=== PATIENT | female | born 1955 | race Caucasian/White ===

== ENCOUNTER 2017-10-10 19:41 | Inpatient (IN) ==
[2017-10-10] MEDS ORDERED: Famotidine 20 MG TABLET PO PRN (20:08)
[2017-10-10] MEDS ORDERED: Nitroglycerin 0.4 MG TAB.SUBL SL PRN (20:08)
[2017-10-10] MEDS: rOPINIRole 1 MG TABLET PO SCH (20:49)
[2017-10-10] MEDS: CarBAMazepine XR (12 hr) 100 MG TAB PO SCH (20:50)
[2017-10-10] MEDS: Beclomethasone 40mcg MDI IH SCH (20:54)
[2017-10-10] MEDS ORDERED: FLUTICASONE PROPIONATE IH SCH (21:00)
[2017-10-10] MEDS: clonazePAM 0.5 MG TABLET PO SCH (21:20)
[2017-10-11 06:51] LABS: Basophils % 0.4 %; Eosinophils # 0.3 K/mcL (0.0-0.6); Eosinophils % 2.7 %; Hematocrit 34.6 % (35.3-44.9); Hemoglobin 11.2 g/dL (11.5-15.4); Immature Granulocytes % 0.3 % (0-4); Lymphocytes # 2.1 K/mcL (0.6-4.6); Lymphocytes % 22.9 %; Mean Corpuscular HGB Conc 32.4 g/dL (31.6-35.5); Mean Corpuscular Hemoglobin 31.6 pg (28.0-33.3); Mean Corpuscular Volume 97.7 fL (83.0-100.0); Mean Platelet Volume 10.2 fL (9.4-12.4); Monocytes # 0.8 K/mcL (0.0-1.3); Monocytes % 8.3 %; Platelet Count 294 K/mcL (140-400); Red Blood Count 3.54 M/mcL (3.82-4.97); Red Cell Distribution Width 13.4 % (11.5-14.5); Segmented Neutrophils % 65.4 %
[2017-10-11 06:52] LABS: BUN/Creatinine Ratio 15 (6-26); Blood Urea Nitrogen 9 mg/dL (7-20); Calcium 9.7 mg/dL (8.6-10.8); Carbon Dioxide 24 mEq/L (19-29); Chloride 101 mEq/L (98-109); Glucose 111 mg/dL (70-99); Osmolality,Calculated 281 (280-300); Potassium 4.5 mEq/L (3.5-4.5); Prothrombin Time 10.2 Seconds (9.4-12.1); Sodium 136 mEq/L (136-145); eGFR For African Americans > 60 (> 60); eGFR For Non-African Americans > 60 (> 60)
[2017-10-11] MEDS: CarBAMazepine XR (12 hr) 100 MG TAB PO SCH ×2 (08:41→22:10)
[2017-10-11] MEDS: Metoprolol XL (24 HR) Succ 25 MG TAB.ER.24H PO SCH (08:41)
[2017-10-11] MEDS: clonazePAM 0.5 MG TABLET PO SCH ×2 (08:41→22:09)
[2017-10-11] MEDS: Multivit/Ca/Min/Fe/FA 1 TAB TABLET PO SCH (08:41)
[2017-10-11] MEDS: Aspirin 81 MG TAB.CHEW PO SCH (08:41)
[2017-10-11] MEDS: Cholecalciferol (D-3) 1,000 UNIT TABLET PO SCH (08:42)
[2017-10-11] MEDS: Beclomethasone 40mcg MDI IH SCH ×2 (09:48→22:10)
[2017-10-11] MEDS: Amoxicillin/Clavulanate 500 MG TABLET PO SCH ×2 (09:48→17:49)
--- NOTE | 2017-10-11 14:15 | Internal Med History&Physical ---
Date of Encounter: 10/11/17 Time of Encounter: 14:13 Assessment and Plan (1) Enterococcus UTI Current visit: No Status: Acute No acute issues. Febrile. Patient continues on current antibiotics. Will continue with therapy. (2) Delirium Current visit: No Status: Acute Patient is oriented and appropriate with conversation. Noted to have hesitation and word searching during conversation. No other focal deficits noted during exam. We will continue with current plan of care (3) HTN (hypertension) Current visit: No Status: Chronic Vital signs stable. We will continue with current medications. Qualifiers: Hypertension type: essential hypertension Qualified Code(s): I10 - Essential (primary) hypertension (4) Cervical stenosis of spinal canal Current visit: No Status: Acute No focal deficits noted on neurological exam. Muscle strength is 5/5 to all extremities, both flexion and extension. Patient with history of frequent falls. We will continue with physical therapy. Internal Medicine - H&P: HPI Chief complaint: UTI Admitted From: Home History of present illness: Ms. Coulter is a 62 year old female admitted to this facility for physical therapy and rehabilitation due to deconditioning after treatment for a UTI. Patient was admitted to previous facility for delirium and found to have a ESBL UTI. Patient currently denies any discomforts or shortness of breath. Stated noted to have hesitation during answering questions and appears to have word searching, but is appropriate with answers and follows commands well. Patient denies any fever or chills Past Med Surg Social Fam HX - Past Medical History Medical history: arthritis, asthma, coronary artery disease, GERD, hyperlipidemia, hypertension, seizures, syncope, other (Cervical stenosis) Psychiatric history: no psych history - Past Surgical History Surgical History: cholecystectomy, hip replacement, knee replacement - Social History Smoking Status: Never smoker Smokeless Tobacco Status: No Alcohol use: none Drug use: none - Family History Father History Unknown: Yes Mother History Unknown: Yes Family Member Ethnicity: Non- Living Status: Still Living Hx Family Cardiac Disorders: Yes Hx Family Respiratory Disorders: Yes Hx Family Cancer: Yes Hx Family GI Disorders: Yes Hx Family Endocrine Disorder: No Hx Family Neuromuscular Disorders: No Hx Family Neurologic Disorders: No Hx Family HEENT Disorders: No Hx Family Autoimmune Disorders: No Internal Medicine - H&P: Meds Acetaminophen [Tylenol] 500 mg PO Q6H PRN 05/19/16 [History] Albuterol Sulfate [Albuterol Inhaler] 2 puff IH Q4H PRN 05/19/16 [History] Aspirin 81 mg PO DAILY 05/19/16 [History] Cholecalciferol (D-3) [Vitamin D] 2,000 unit PO DAILY 05/19/16 [History] Fluticasone Propionate [Flovent Diskus] 2 puff IH BID 05/19/16 [History] Metoprolol XL (24 HR) Succ [Toprol Xl] 25 mg PO DAILY 05/19/16 [History] Multivitamin [Multivitamins] 1 each PO DAILY 05/19/16 [History] Oxybutynin [Ditropan] 5 mg PO HS 05/19/16 [History] Propafenone [Rhythmol] 150 mg PO BID 05/19/16 [History] Ramipril 2.5 mg PO DAILY 05/19/16 [History] Ranitidine HCl [Heartburn Relief] 150 mg PO DAILY PRN 05/19/16 [History] Ropinirole HCl [Requip] 2 mg PO HS 05/19/16 [History] clonazePAM [Klonopin] 0.5 mg PO BID 05/19/16 [History] Beclomethasone Diprop 40mcg [QVAR 40 mcg] 2 puff IH BID 10/05/17 [History] Meclizine HCl [Verticalm] 25 mg PO TID PRN 10/05/17 [History] Nitroglycerin [Nitrostat] 0.4 mg SL Q5M PRN 10/05/17 [History] carBAMazepine [Tegretol Xr] 400 mg PO HS 10/05/17 [History] carBAMazepine [Tegretol Xr] 600 mg PO QAM 10/05/17 [History] Amoxicillin/Clavulanate [Augmentin] 500 mg PO BIDWM 6 Days #12 tablet 10/10/17 [ Rx] 3 Allergy/AdvReac Type Severity Reaction Status Date / Time caffeine AdvReac Palpitation Verified 05/20/16 07:29 s All Systems PM: A 10-system review of systems was performed and is negative for pertinent findings except as documented above in the HPI. - Constitutional Constitutional: as per HPI - EENT Eyes: as per HPI Ears: no ear discharge, no ear pain, no tinnitus Nose, mouth and throat: no dysphagia, no nasal discharge, no neck pain, no sore throat - Cardiovascular Cardiovascular ROS IM: no chest pain, no diaphoresis, no dyspnea, no lightheadedness, no palpitations, no syncope - Respiratory Respiratory: no cough, no dyspnea, no wheezing, no excessive phlegm production - Gastrointestinal Gastrointestinal: no abdominal pain, no diarrhea, no hematemesis, no hematochezia, no melena, no nausea, no vomiting - Genitourinary Genitourinary: no change in urinary stream, no dysuria, no flank pain, no hematuria - Musculoskeletal Musculoskeletal ROS IM: no numbness, no tingling - Integumentary Integumentary IM: no rash, no unusual bruising - Neurological Neurological ROS: confusion, no convulsions, no focal weakness, no numbness, no tingling, no tremor(s) - Psychiatric Psychiatric: as per HPI - Hematologic/Lymphatic Hematologic/Lymphatic: no easy bruising - Allergic/Immunologic Allergic/Immunologic: as per HPI - Constitutional Vitals: Temp Pulse Resp BP Pulse Ox 97.9 F 78 18 123/80 97 10/11/17 11:38 10/11/17 11:38 10/11/17 11:38 10/11/17 11:38 10/11/17 11:38 General appearance: Present: A&O X 3, pleasant - Head Head exam: Present: atraumatic, normocephalic - Eye Eye exam: Present: PERRL, conjuntiva pink, sclera anicteric Pupils: Present: PERRL - Neck Neck exam general surgery: Present: supple, trachea midline. Absent: lymphadenopathy - Respiratory Respiratory exam: Absent: accessory muscle use, rales, rhonchi, wheezes Additional comments: Lungs are clear to illness and fine bibasilar rales heard. Respiratory effort is relaxed - Cardiovascular Cardiovascular exam: Present: RRR, +S1, +S2. Absent: diastolic murmur, gallop, rubs, systolic murmur - GI/Abdominal GI/Abdominal exam: Present: normal bowel sounds, soft, no peritoneal signs. Absent: distended, tenderness - Extremities Exam Extremities exam: Present: warm, radial pulses palpable and symmetrical. Absent : calf tenderness, cyanotic, pedal edema - Neurological Exam Neurological exam: Present: alert, CN II-XII intact, oriented X3, no focal deficits. Absent: pronater drift, facial droop, speech deficit Additional comments: Patient is oriented and appropriate with conversation but noted several seconds of hesitation when answering questions. Patient also noted to have slight generalized tremors. No other focal neurological deficits noted - Skin Skin exam: Present: dry, intact Internal Med - H&P Results - Labs CBC & Chem 7: 10/11/17 06:19 10/11/17 06:19 Labs: Short CBC 10/11/17 Range/Units 06:19 WBC 9.3 (4.3-11.1) K/mcL Hgb 11.2 L (11.5-15.4) g/dL Hct 34.6 L (35.3-44.9) % Plt Count 294 (140-400) K/mcL Neutrophils # 6.0 (1.6-8.9) K/mcL BMP 10/11/17 06:19 Sodium 136 Potassium 4.5 Chloride 101 Carbon Dioxide 24 BUN 9 Creatinine 0.61 Glucose 111 H Calcium 9.7 - VTE Documentation of Mechanical Device: Graduated compression elastic hosiery
[2017-10-11] MEDS: rOPINIRole 1 MG TABLET PO SCH (22:09)
[2017-10-12] MEDS: clonazePAM 0.5 MG TABLET PO SCH ×2 (08:28→21:25)
[2017-10-12] MEDS: Cholecalciferol (D-3) 1,000 UNIT TABLET PO SCH (08:28)
[2017-10-12] MEDS: Amoxicillin/Clavulanate 500 MG TABLET PO SCH ×2 (08:28→18:51)
[2017-10-12] MEDS: CarBAMazepine XR (12 hr) 100 MG TAB PO SCH ×2 (08:28→21:25)
[2017-10-12] MEDS: Aspirin 81 MG TAB.CHEW PO SCH (08:28)
[2017-10-12] MEDS: Metoprolol XL (24 HR) Succ 25 MG TAB.ER.24H PO SCH (08:28)
[2017-10-12] MEDS: Multivit/Ca/Min/Fe/FA 1 TAB TABLET PO SCH (08:28)
[2017-10-12] MEDS: Beclomethasone 40mcg MDI IH SCH ×2 (10:38→21:25)
--- NOTE | 2017-10-12 11:22 | Internal Med Progress Note ---
Date of Encounter: 10/12/17 Time of Encounter: 11:20 - Assessment and plan (1) Enterococcus UTI Current Visit: No Status: Acute Assessment and plan: Patient continues with complaints of frequency. Will continue on current antibiotics. Afebrile. We will continue with current plan of care. Per medical records patient has had several UTIs over the last 6 months. Would recommend patient follow-up with urology for further diagnostic workup. (2) Delirium Current Visit: No Status: Acute Assessment and plan: Patient reports patient became very confused throughout the night but again this morning she presents as oriented and appropriate. Spoke at length with who denies any episodes of confusion while at home, but did not express concerns about patient's declining health over the last 6 months. Per medical records patient has had recent diagnostic workup to neurology and ENT. Patient currently shows no focal neurological deficits. We will continue to monitor and reevaluate patient as she is infection free. (3) HTN (hypertension) Current Visit: No Status: Chronic Assessment and plan: Vital signs stable. We will continue his current medications. Qualifiers: Hypertension type: essential hypertension Qualified Code(s): I10 - Essential (primary) hypertension (4) Cervical stenosis of spinal canal Current Visit: No Status: Acute Assessment and plan: Patient noted to have generalized weakness and a history of frequent falls. Patient had neurological workup per neurology which showed moderate cervical stenosis. Patient shows no focal neurological deficits. Denies any decreased sensory or paresthesia. We will continue with physical therapy. We will continue to monitor closely. - Subjective Interval history: Patient appears relaxed and currently denies any discomforts. Patient does state that she does continue to have moderate generalized weakness. Patient noted to continue to have slight amount of word searching during questioning. Nurse reports patient became very confused Route tonight but this morning appears very appropriate and oriented. Spoke with her at length this morning on telephone and he expressed concerns about patient's recent decline in health over the past 6 months. Patient relates most of her symptoms began after a trip outside of the country. Patient's medical records were reviewed that shows that she has had recent diagnostic workup from ENT and neurology. denies any episodes of confusion at home. - Constitutional Vitals: Temp Pulse Resp BP Pulse Ox 98.9 F 62 16 110/56 97 10/12/17 07:32 10/12/17 07:32 10/12/17 07:32 10/12/17 07:32 10/12/17 07:32 General appearance: Present: A&O X 3, pleasant - Head Head exam: Present: atraumatic, normocephalic - Eye Eye exam: Present: PERRL, conjuntiva pink, sclera anicteric Pupils: Present: PERRL - Neck Neck exam general surgery: Present: supple, trachea midline. Absent: lymphadenopathy - Respiratory Respiratory exam: Present: CTAB. Absent: accessory muscle use, rales, rhonchi, wheezes - Cardiovascular Cardiovascular exam: Present: RRR, +S1, +S2. Absent: diastolic murmur, gallop, rubs, systolic murmur - GI/Abdominal GI/Abdominal exam: Present: normal bowel sounds, soft, no peritoneal signs. Absent: distended, tenderness - Extremities Exam Extremities exam: Present: warm, radial pulses palpable and symmetrical. Absent : calf tenderness, cyanotic, pedal edema - Neurological Exam Neurological exam: Present: CN II-XII intact, oriented X3, no focal deficits. Absent: pronater drift, facial droop, speech deficit Additional comments: No focal deficits noted on neurological exam. Patient noted to have some hesitation and word searching during conversation. Patient is appropriate with conversation and oriented 3. Patient also noted to continue to have generalized tremors. Per patient's generalized tremors has been a chronic condition over the past several years. - Skin Skin exam: Present: dry, intact Internal Medicine: Result - Labs CBC & Chem 7: 10/11/17 06:19 10/11/17 06:19 - ABG Interpretation ABG results: PT/INR, D-dimer PT 10.2 Seconds (9.4-12.1) 10/11/17 06:19 - VTE Documentation of Mechanical Device: Graduated compression elastic hosiery Consult Discharge Plan - Plan Referrals: Sebastian Juarez MD [Primary Care Provider] -
[2017-10-12] MEDS: rOPINIRole 1 MG TABLET PO SCH (21:25)
[2017-10-13 05:51] LABS: Basophils # 0.1 K/mcL (0.0-0.2); Basophils % 0.6 %; Eosinophils # 0.3 K/mcL (0.0-0.6); Eosinophils % 3.7 %; Hemoglobin 11.3 g/dL (11.5-15.4); Immature Granulocytes % 0.4 % (0-4); Lymphocytes # 1.8 K/mcL (0.6-4.6); Lymphocytes % 21.1 %; Mean Corpuscular HGB Conc 32.3 g/dL (31.6-35.5); Mean Corpuscular Hemoglobin 31.3 pg (28.0-33.3); Mean Platelet Volume 9.9 fL (9.4-12.4); Monocytes # 0.7 K/mcL (0.0-1.3); Monocytes % 8.1 %; Neutrophils # 5.7 K/mcL (1.6-8.9); Platelet Count 284 K/mcL (140-400); Red Blood Count 3.61 M/mcL (3.82-4.97); Red Cell Distribution Width 13.3 % (11.5-14.5); Segmented Neutrophils % 66.1 %
[2017-10-13 06:08] LABS: Alanine Aminotransferase 53 Units/L (0-55); Albumin 3.2 g/dL (3.5-5.0); Alkaline Phosphatase 146 Units/L (38-126); Aspartate Amino Transferase 39 Units/L (5-34); BUN/Creatinine Ratio 16 (6-26); Bilirubin,Total 0.6 mg/dL (0.2-1.2); Blood Urea Nitrogen 10 mg/dL (7-20); Calcium 9.8 mg/dL (8.6-10.8); Carbon Dioxide 25 mEq/L (19-29); Chloride 99 mEq/L (98-109); Globulin 3.2 g/dL (2.4-3.5); Glucose 109 mg/dL (70-99); Osmolality,Calculated 276 (280-300); Potassium 4.6 mEq/L (3.5-4.5); Sodium 133 mEq/L (136-145); Total Protein 6.4 g/dL (6.0-8.3); eGFR For African Americans > 60 (> 60); eGFR For Non-African Americans > 60 (> 60)
[2017-10-13] MEDS: CarBAMazepine XR (12 hr) 100 MG TAB PO SCH ×2 (08:22→21:48)
[2017-10-13] MEDS: Cholecalciferol (D-3) 1,000 UNIT TABLET PO SCH (08:22)
[2017-10-13] MEDS: Metoprolol XL (24 HR) Succ 25 MG TAB.ER.24H PO SCH (08:22)
[2017-10-13] MEDS: Amoxicillin/Clavulanate 500 MG TABLET PO SCH ×2 (08:22→18:16)
[2017-10-13] MEDS: Multivit/Ca/Min/Fe/FA 1 TAB TABLET PO SCH (08:22)
[2017-10-13] MEDS: Aspirin 81 MG TAB.CHEW PO SCH (08:23)
[2017-10-13] MEDS: Beclomethasone 40mcg MDI IH SCH ×2 (08:23→21:49)
[2017-10-13] MEDS: clonazePAM 0.5 MG TABLET PO SCH ×2 (08:23→21:47)
--- NOTE | 2017-10-13 12:36 | Internal Med Progress Note ---
Date of Encounter: 10/13/17 Time of Encounter: 12:35 - Assessment and plan (1) UTI (urinary tract infection) Current Visit: No Status: Acute Assessment and plan: Will continue amoxacillin/clavlanic acid for enterococcus, follow. Qualifiers: Urinary tract infection type: acute cystitis Hematuria presence: without hematuria Qualified Code(s): N30.00 - Acute cystitis without hematuria (2) Delirium Current Visit: No Status: Acute Assessment and plan: I suspect that this is either metabolc due to UTI or more likely due to untreated sleep apnea. Will place on nocturnal O with oxygen saturation mornitoring and consider CPAP if she desaturates, at all. Will consider addition of [id number] sedative if needed but I'd prefer to avoid this.. (3) HTN (hypertension) Current Visit: No Status: Chronic Assessment and plan: Clinically stable so will continue current regimen. Qualifiers: Hypertension type: essential hypertension Qualified Code(s): I10 - Essential (primary) hypertension - Subjective Interval history: She is still feeling tired, states she's "weak all over." On extensive questioning, she admits to vivid dreas and this morning, felt she was dreaming while awake. She denies dyspnea, chest symptoms, cough, nausea or abdominal pain, bowel or bladder dysfuction, etc. Nursing and thereapy note change in alertness and difficulty with following commands, attension, etc. - Constitutional Vitals: Temp Pulse Resp BP Pulse Ox 98.3 F 72 16 147/80 95 10/13/17 08:16 10/13/17 08:16 10/13/17 08:16 10/13/17 08:16 10/13/17 08:16 General appearance: Present: A&O X 3, pleasant - Head Head exam: Present: atraumatic, normocephalic - Neck Neck exam general surgery: Present: normal inspection, supple, trachea midline. Absent: nuchal rigidity - Respiratory Respiratory exam: Present: prolonged expiratory phase, rhonchi. Absent: accessory muscle use Additional comments: Rhonichi are sonorous, not sibilant. - Cardiovascular Cardiovascular exam: Present: RRR. Absent: systolic murmur - GI/Abdominal GI/Abdominal exam: Present: normal bowel sounds. Absent: hepatomegaly, splenomegaly, tenderness Additional comments: Morbidly obese and therefore difficult to palpate deeply. Examined in wheelchair. - Extremities Exam Extremities exam: Present: normal capillary refill. Absent: calf tenderness, pedal edema - Neurological Exam Additional comments: She demonstrates brief periods of inattention consistend with microsleeps. She has asterixis to confrontation. She is oriented X 3 but is not attentie if allowed to relax. No facoality. Internal Medicine: Result - Labs CBC & Chem 7: 10/13/17 05:30 10/13/17 05:30 Labs: Short CBC 10/13/17 Range/Units 05:30 WBC 8.6 (4.3-11.1) K/mcL Hgb 11.3 L (11.5-15.4) g/dL Hct 35.0 L (35.3-44.9) % Plt Count 284 (140-400) K/mcL Neutrophils # 5.7 (1.6-8.9) K/mcL BMP 10/13/17 05:30 Sodium 133 L Potassium 4.6 H Chloride 99 Carbon Dioxide 25 BUN 10 Creatinine 0.63 Glucose 109 H Calcium 9.8 Liver Function 10/13/17 Range/Units 05:30 Total Bilirubin 0.6 (0.2-1.2) mg/dL AST 39 H (5-34) Units/L ALT 53 (0-55) Units/L Alkaline Phosphatase 146 H (38-126) Units/L Albumin 3.2 L (3.5-5.0) g/dL Carbamazepine level was adequately therapeutic - ABG Interpretation ABG results: PT/INR, D-dimer PT 10.2 Seconds (9.4-12.1) 10/11/17 06:19 - VTE Documentation of Mechanical Device: Graduated compression elastic hosiery Consult Discharge Plan - Plan Referrals: Sebastian Juarez MD [Primary Care Provider] -
[2017-10-13 13:17] LABS: Carbamazepine (Tegretol) 7.9 mcg/mL (4.0-12.0)
[2017-10-13 13:25] LABS: Thyroid Stimulating Hormone 1.204 mcIU/mL (0.340-5.600)
[2017-10-13] MEDS: rOPINIRole 1 MG TABLET PO SCH (21:48)
[2017-10-14] MEDS: Multivit/Ca/Min/Fe/FA 1 TAB TABLET PO SCH (09:14)
[2017-10-14] MEDS: Amoxicillin/Clavulanate 500 MG TABLET PO SCH ×2 (09:14→17:22)
[2017-10-14] MEDS: Cholecalciferol (D-3) 1,000 UNIT TABLET PO SCH (09:14)
[2017-10-14] MEDS: Beclomethasone 40mcg MDI IH SCH ×2 (09:14→19:52)
[2017-10-14] MEDS: clonazePAM 0.5 MG TABLET PO SCH ×2 (09:14→19:51)
[2017-10-14] MEDS: CarBAMazepine XR (12 hr) 100 MG TAB PO SCH ×2 (09:14→19:51)
[2017-10-14] MEDS: Aspirin 81 MG TAB.CHEW PO SCH (09:14)
[2017-10-14] MEDS: Metoprolol XL (24 HR) Succ 25 MG TAB.ER.24H PO SCH (09:14)
--- NOTE | 2017-10-14 14:29 | Internal Med Progress Note ---
Date of Encounter: 10/14/17 Time of Encounter: 14:00 - Assessment and plan (1) UTI (urinary tract infection) Current Visit: No Status: Acute Assessment and plan: Will continue amoxacillin/clavlanic acid for enterococcus, follow. Qualifiers: Urinary tract infection type: acute cystitis Hematuria presence: without hematuria Qualified Code(s): N30.00 - Acute cystitis without hematuria (2) Delirium Current Visit: No Status: Acute Assessment and plan: Seems much improved with Haldol for sleep and with CPAP. I suspect she needs CPAP conntinuously and will contiue with recommendation for polysomnogram DERRICK upon discharge. (3) HTN (hypertension) Current Visit: No Status: Chronic Assessment and plan: Clinically stable so will continue current regimen. Qualifiers: Hypertension type: essential hypertension Qualified Code(s): I10 - Essential (primary) hypertension - Subjective Interval history: She slept reasonably well last night and was surprised she could sleep with CPAP. She feels much more energy today. No other complaints. ROS is otherwise negative. - Constitutional Vitals: Temp Pulse Resp BP Pulse Ox 99.4 F 66 20 106/58 96 10/14/17 07:00 10/14/17 07:00 10/14/17 07:00 10/14/17 07:00 10/14/17 07:00 General appearance: Present: A&O X 3, pleasant - Respiratory Respiratory exam: Present: CTAB. Absent: accessory muscle use - Cardiovascular Cardiovascular exam: Present: RRR. Absent: systolic murmur - GI/Abdominal GI/Abdominal exam: Present: normal bowel sounds. Absent: hepatomegaly, splenomegaly, tenderness - Extremities Exam Extremities exam: Present: normal inspection. Absent: calf tenderness - Neurological Exam Neurological exam: Present: oriented X3. Absent: facial droop, speech deficit Additional comments: Still with asterixis but delayed compared to yesterday and much more alert and follows commands without signs of microsleeps. - Psychiatric Psychiatric exam: Present: normal affect, normal mood Internal Medicine: Result - Labs CBC & Chem 7: 10/13/17 05:30 10/13/17 05:30 - ABG Interpretation ABG results: PT/INR, D-dimer PT 10.2 Seconds (9.4-12.1) 10/11/17 06:19 - VTE Documentation of Mechanical Device: Graduated compression elastic hosiery Consult Discharge Plan - Plan Referrals: Sebastian Juarez MD [Primary Care Provider] -
[2017-10-14] MEDS: rOPINIRole 1 MG TABLET PO SCH (19:51)
[2017-10-15 05:04] LABS: Basophils % 0.5 %; Eosinophils # 0.2 K/mcL (0.0-0.6); Eosinophils % 2.9 %; Hematocrit 35.9 % (35.3-44.9); Hemoglobin 11.4 g/dL (11.5-15.4); Immature Granulocytes % 0.4 % (0-4); Lymphocytes # 1.9 K/mcL (0.6-4.6); Lymphocytes % 24.7 %; Mean Corpuscular HGB Conc 31.8 g/dL (31.6-35.5); Mean Corpuscular Hemoglobin 31.1 pg (28.0-33.3); Mean Corpuscular Volume 98.1 fL (83.0-100.0); Monocytes # 0.7 K/mcL (0.0-1.3); Monocytes % 8.6 %; Neutrophils # 4.9 K/mcL (1.6-8.9); Platelet Count 283 K/mcL (140-400); Red Blood Count 3.66 M/mcL (3.82-4.97); Red Cell Distribution Width 13.3 % (11.5-14.5); Segmented Neutrophils % 62.9 %
[2017-10-15 05:18] LABS: BUN/Creatinine Ratio 15 (6-26); Blood Urea Nitrogen 9 mg/dL (7-20); Calcium 9.8 mg/dL (8.6-10.8); Carbon Dioxide 28 mEq/L (19-29); Chloride 98 mEq/L (98-109); Glucose 103 mg/dL (70-99); Osmolality,Calculated 275 (280-300); Potassium 4.7 mEq/L (3.5-4.5); Sodium 133 mEq/L (136-145); eGFR For African Americans > 60 (> 60); eGFR For Non-African Americans > 60 (> 60)
[2017-10-15] MEDS: Multivit/Ca/Min/Fe/FA 1 TAB TABLET PO SCH (08:20)
[2017-10-15] MEDS: Metoprolol XL (24 HR) Succ 25 MG TAB.ER.24H PO SCH (08:20)
[2017-10-15] MEDS: clonazePAM 0.5 MG TABLET PO SCH ×2 (08:20→20:48)
[2017-10-15] MEDS: Aspirin 81 MG TAB.CHEW PO SCH (08:20)
[2017-10-15] MEDS: Beclomethasone 40mcg MDI IH SCH ×2 (08:20→20:48)
[2017-10-15] MEDS: Cholecalciferol (D-3) 1,000 UNIT TABLET PO SCH (08:20)
[2017-10-15] MEDS: Amoxicillin/Clavulanate 500 MG TABLET PO SCH ×2 (08:20→18:15)
[2017-10-15] MEDS: CarBAMazepine XR (12 hr) 100 MG TAB PO SCH ×2 (08:21→20:48)
--- NOTE | 2017-10-15 15:03 | Internal Med Progress Note ---
Date of Encounter: 10/15/17 Time of Encounter: 13:00 - Assessment and plan (1) Vertigo Current Visit: Yes Status: Acute Assessment and plan: As part of the syndrome of losing her balance difficulty ambulating cognitive problems etc. (2) UTI (urinary tract infection) Current Visit: No Status: Acute Assessment and plan: This should be resolved and I will recheck her urine Qualifiers: Urinary tract infection type: acute cystitis Hematuria presence: without hematuria Qualified Code(s): N30.00 - Acute cystitis without hematuria (3) Frequent falls Current Visit: No Status: Acute (4) Delirium Current Visit: No Status: Acute Assessment and plan: Patient is intermittently confused and hallucinating even at times (5) Seizure Current Visit: No Status: Chronic Assessment and plan: She came with a history. Not seen any EEGs etc. - Time Spent With Patient 25 - 35 minutes - Subjective Interval history: Patient has had some cognitive and physical difficulties. The family states they are mostly new after recent vacation so she was brought here to see if she could progress in terms of her endurance and ambulation. She has had dizziness and vertiginous symptoms etc. - Constitutional Vitals: Temp Pulse Resp BP Pulse Ox 98.2 F 70 16 125/67 99 10/15/17 07:57 10/15/17 07:57 10/15/17 07:57 10/15/17 07:57 10/15/17 07:57 General appearance: Present: A&O X 3, pleasant - Head Head exam: Present: atraumatic, normal inspection, normocephalic - Neck Neck exam general surgery: Present: supple, trachea midline. Absent: lymphadenopathy - Respiratory Respiratory exam: Present: CTAB. Absent: accessory muscle use, rales, rhonchi, wheezes - Cardiovascular Cardiovascular exam: Present: RRR, +S1, +S2. Absent: diastolic murmur, gallop, rubs, systolic murmur - GI/Abdominal GI/Abdominal exam: Present: normal bowel sounds, soft, no peritoneal signs. Absent: distended, tenderness Internal Medicine: Result - Labs CBC & Chem 7: 10/15/17 04:50 10/15/17 04:50 Labs: Short CBC 10/15/17 Range/Units 04:50 WBC 7.8 (4.3-11.1) K/mcL Hgb 11.4 L (11.5-15.4) g/dL Hct 35.9 (35.3-44.9) % Plt Count 283 (140-400) K/mcL Neutrophils # 4.9 (1.6-8.9) K/mcL BMP 10/15/17 04:50 Sodium 133 L Potassium 4.7 H Chloride 98 Carbon Dioxide 28 BUN 9 Creatinine 0.62 Glucose 103 H Calcium 9.8 Lab looks stable - ABG Interpretation ABG results: PT/INR, D-dimer PT 10.2 Seconds (9.4-12.1) 10/11/17 06:19 - VTE Documentation of Mechanical Device: Graduated compression elastic hosiery Consult Discharge Plan - Plan Referrals: Sebastian Juarez MD [Primary Care Provider] -
[2017-10-15] MEDS: rOPINIRole 1 MG TABLET PO SCH (20:48)
[2017-10-16] MEDS: Beclomethasone 40mcg MDI IH SCH (08:41)
[2017-10-16] MEDS: clonazePAM 0.5 MG TABLET PO SCH (08:50)
[2017-10-16] MEDS: Cholecalciferol (D-3) 1,000 UNIT TABLET PO SCH (08:50)
[2017-10-16] MEDS: Metoprolol XL (24 HR) Succ 25 MG TAB.ER.24H PO SCH (08:50)
[2017-10-16] MEDS: Multivit/Ca/Min/Fe/FA 1 TAB TABLET PO SCH (08:50)
[2017-10-16] MEDS: CarBAMazepine XR (12 hr) 100 MG TAB PO SCH (08:50)
[2017-10-16] MEDS: Aspirin 81 MG TAB.CHEW PO SCH (08:50)
[2017-10-16 09:13] VITALS: BP 123/64
[2017-10-16] MEDS: Amoxicillin/Clavulanate 500 MG TABLET PO SCH ×2 (12:45→17:19)
--- NOTE | 2017-10-16 12:48 | Internal Med Progress Note ---
Date of Encounter: 10/16/17 Time of Encounter: 12:46 - Assessment and plan (1) Seizure disorder Current Visit: Yes Status: Acute (2) Unsteady gait Current Visit: Yes Status: Acute Assessment and plan: assist with ADL's continue PT/OT (3) UTI (urinary tract infection) Current Visit: No Status: Acute Assessment and plan: u/a pending/ Qualifiers: Urinary tract infection type: acute cystitis Hematuria presence: without hematuria Qualified Code(s): N30.00 - Acute cystitis without hematuria (4) Delirium Current Visit: No Status: Acute Assessment and plan: Patient is intermittently confused and hallucinating even at times. unsure of etiology. u/a pending. - Time Spent With Patient 25 - 35 minutes - Subjective Interval history: participating with therapy. continues to have difficulty with thought process and gait unstability. denies pain but states feels like bilat ears are clogged. - Constitutional Vitals: Temp Pulse Resp BP Pulse Ox 98.5 F 75 18 123/64 96 10/16/17 07:00 10/16/17 07:00 10/16/17 08:43 10/16/17 07:00 10/16/17 08:43 General appearance: Present: A&O X 3, pleasant, no acute distress, obese, answers questions appropriately Exam: confused at times. - Head Head exam: Present: atraumatic, normocephalic - Eye Eye exam: Present: PERRL, conjuntiva pink, sclera anicteric Pupils: Present: PERRL - ENT ENT exam: Present: mucous membranes moist Additional comments: bilat ear canals free of debis and redness. TM's pearly lomeli with fluid visualized behind. - Neck Neck exam general surgery: Present: supple, trachea midline. Absent: lymphadenopathy - Respiratory Respiratory exam: Present: CTAB. Absent: accessory muscle use, rales, rhonchi, wheezes - Cardiovascular Cardiovascular exam: Present: RRR, +S1, +S2. Absent: diastolic murmur, gallop, rubs, systolic murmur - GI/Abdominal GI/Abdominal exam: Present: normal bowel sounds, soft, no peritoneal signs. Absent: distended, tenderness - Extremities Exam Extremities exam: Present: warm, radial pulses palpable and symmetrical. Absent : calf tenderness, cyanotic, pedal edema - Neurological Exam Neurological exam: Present: CN II-XII intact, oriented X3, no focal deficits. Absent: pronater drift, facial droop, speech deficit - Skin Skin exam: Present: dry, intact Internal Medicine: Result - Labs CBC & Chem 7: 10/15/17 04:50 10/15/17 04:50 - ABG Interpretation ABG results: PT/INR, D-dimer PT 10.2 Seconds (9.4-12.1) 10/11/17 06:19 - VTE Documentation of Mechanical Device: Graduated compression elastic hosiery Consult Discharge Plan - Plan Referrals: Sebastian Juarez MD [Primary Care Provider] -
--- NOTE | 2017-11-06 11:39 | Discharge Summary ---
Date of Encounter: 11/06/17 Time of Encounter: 11:37 - Discharge Diagnosis (1) Vertigo Priority: Primary Status: Acute (2) UTI (urinary tract infection) Priority: Primary Status: Acute Qualifiers: Urinary tract infection type: acute cystitis Hematuria presence: without hematuria Qualified Code(s): N30.00 - Acute cystitis without hematuria (3) Frequent falls Priority: Primary Status: Acute (4) Delirium Priority: Primary Status: Acute (5) Seizure Priority: Secondary Status: Chronic - Discharge Medications Home Medications: Acetaminophen [Tylenol] 500 mg PO Q6H PRN 05/19/16 [History] Albuterol Sulfate [Albuterol Inhaler] 2 puff IH Q4H PRN 05/19/16 [History] Aspirin 81 mg PO DAILY 05/19/16 [History] Cholecalciferol (D-3) [Vitamin D] 2,000 unit PO DAILY 05/19/16 [History] Fluticasone Propionate [Flovent Diskus] 2 puff IH BID 05/19/16 [History] Metoprolol XL (24 HR) Succ [Toprol Xl] 25 mg PO DAILY 05/19/16 [History] Multivitamin [Multivitamins] 1 each PO DAILY 05/19/16 [History] Oxybutynin [Ditropan] 5 mg PO HS 05/19/16 [History] Propafenone [Rhythmol] 150 mg PO BID 05/19/16 [History] Ramipril 2.5 mg PO DAILY 05/19/16 [History] Ranitidine HCl [Heartburn Relief] 150 mg PO DAILY PRN 05/19/16 [History] Ropinirole HCl [Requip] 2 mg PO HS 05/19/16 [History] clonazePAM [Klonopin] 0.5 mg PO BID 05/19/16 [History] Beclomethasone Diprop 40mcg [QVAR 40 mcg] 2 puff IH BID 10/05/17 [History] Meclizine HCl [Verticalm] 25 mg PO TID PRN 10/05/17 [History] Nitroglycerin [Nitrostat] 0.4 mg SL Q5M PRN 10/05/17 [History] carBAMazepine [Tegretol Xr] 400 mg PO HS 10/05/17 [History] carBAMazepine [Tegretol Xr] 600 mg PO QAM 10/05/17 [History] Amoxicillin/Clavulanate [Augmentin] 500 mg PO BIDWM 6 Days #12 tablet 10/10/17 [ Rx] Allergies/Adverse Reactions: 3 Allergy/AdvReac Type Severity Reaction Status Date / Time caffeine AdvReac Palpitation Verified 05/20/16 07:29 s Date of admission: 10/10/17 19:43 Primary care physician: Sebastian Juarez MD Consults: 10/10/17 20:11 Consult to Occupational Therapy [CONS] Routine Comment: Evaluate, develop and implement POC Reason for Consult: Eval and Treat Consult to Physical Therapy [CONS] Routine Comment: Evaluate, develop and implement POC Reason for Consult: Eval and Treat Consult to Recreational Therapy [CONS] Routine Comment: Evaluate, develop and implement POC Consult to Process Manufacturing Engineer [CONS] Routine Reason for SW Consult: Discharge Planning Discharging clinician: Richard Elmore Anticipated date of discharge: 10/16/17 - Patient Status Disposition: Transfer Other Condition: Fair Overall status at discharge: patient is not back to baseline - Discharge Instructions Follow Up With: Sebastian Juarez MD [Primary Care Provider] - - Diet and Activity Activity: as per physical therapy Diet: advance to your usual diet Interval History: This patient was brought in because she had some unexplained symptoms after her vacation. She had confusion and delirium at times loss of balance frequent falls and a UTI. So this was all addressed. Hospital course: Ms. Coulter is a 62 year old female Who presented with multiple symptoms. We treated UTI and the symptoms did not resolve. I was concerned about an undiagnosed neurologic problem. And the patient was transferred to [facility] neurology to see what their thoughts were. Time spent discussing smoking cessation with patient: 3 to 10 minutes - Time Spent with Patient Total time spent providing and/or coordinating discharge services: Less than 30 minutes - Constitutional Vitals: Temp Pulse Resp BP Pulse Ox 98.5 F 75 18 123/64 96 10/16/17 07:00 10/16/17 07:00 10/16/17 08:43 10/16/17 07:00 10/16/17 08:43 General appearance: Present: A&O X 3, pleasant, no acute distress, obese, answers questions appropriately Exam: I would caution the said there were times and the patient was perfectly lucid and other times where she was very confused - Head Head exam: Present: atraumatic, normal inspection, normocephalic - Neck Neck exam general surgery: Present: supple, trachea midline. Absent: lymphadenopathy - Respiratory Respiratory exam: Present: CTAB. Absent: accessory muscle use, rales, rhonchi, wheezes - Cardiovascular Cardiovascular exam: Present: RRR, +S1, +S2. Absent: diastolic murmur, gallop, rubs, systolic murmur - VTE Documentation of Mechanical Device: Graduated compression elastic hosiery
== END 2017-10-16 19:10 | disposition short-term general hospital (02) | DRG 945 ==
LOC: INPGRE 19:43
PROVIDERS: ADMIT Internal Medicine; ATTEND Internal Medicine